=== PATIENT | male | born 1990 | race Two or more races ===

== ENCOUNTER 2023-05-07 19:19 | Emergency (ER) | payer MEDICAID ==
[~2023-05-07] VITALS: Ht 188 cm; Wt 59.2 kg
[2023-05-07 19:35] VITALS: TEMP 98.5
[2023-05-07 19:45] LABS: COVID AG,FIA SOURCE NASAL SWAB
[2023-05-07 19:47] LABS: SARS-COV2 (COVID) ANTIGEN,FIA Negative (Negative)
[2023-05-07 19:47] LABS: BASOPHILS % (AUTO) 0.2 % (0.0-2.0); EOSINOPHILS % (AUTO) 0 % (1.0-6.0); HEMATOCRIT 46.4 % (41-53); HEMOGLOBIN 15.9 g/dL (13.5-17.5); LYMPHOCYTES # (AUTO) 1.3 K/uL (1.0-4.8); MEAN CORPUSCULAR HEMOGLOBIN 30.5 pg (26.0-34.0); MEAN CORPUSCULAR HGB CONC 34.2 G/dL (31.0-37.0); MEAN CORPUSCULAR VOLUME 89 fL (80-100); MONOCYTES # (AUTO) 0.6 K/uL (0.1-1.0); MONOCYTES % (AUTO) 8.3 % (2.0-9.0); NEUTROPHILS # (AUTO) 5.5 K/uL (1.8-7.7); NEUTROPHILS % (AUTO) 74.5 % (40.0-70.0); PLATELET COUNT (AUTO) 185 K/uL (150-450); RED BLOOD CELL COUNT(AUTO) 5.21 MIL/uL (4.50-5.90); RED CELL DISTRIBUTION WIDTH 14.8 % (11.5-14.5); WHITE BLOOD COUNT (AUTO) 7.4 K/uL (4.5-11.0)
[2023-05-07 20:01] LABS: ANION GAP 12 mmol/L (8-16); CALCIUM, TOTAL 9.1 mg/dL (8.8-10.5); CARBON DIOXIDE 28 mmol/L (22-29); CHLORIDE 100 mmol/L (98-107); CREATININE 0.96 mg/dL (0.60-1.30); GLOMERULAR FILTR. RATE CALC > 60 mL/min (>60); GLUCOSE,RANDOM 146 mg/dL (70-110); POTASSIUM 3.2 mmol/L (3.5-5.1); SODIUM SERUM 140 mmol/L (136-145); UREA NITROGEN, BLOOD 6 mg/dL (7-18)
[2023-05-07 20:04] LABS: ALCOHOL, BLOOD (SERUM) < 3 mg/dL (0-10)
[2023-05-07 20:07] LABS: ALANINE AMINOTRANSFERASE 15 U/L (12-78); ALBUMIN 3.7 g/dL (3.4-5.0); ALKALINE PHOSPHATASE 62 U/L (46-116); ASPARTATE AMINOTRANSFERASE 12 U/L (15-37); BILIRUBIN,TOTAL 0.5 mg/dL (0.1-1.0); TOTAL PROTEIN, SERUM 7.6 g/dL (6.4-8.2)
[2023-05-08 03:02] VITALS: BP 117/77; PULSE 77; RESP 16
[2023-05-08] MEDS ORDERED: ChlorproMAZINE HCL 100 MG TABLET PO PRN (03:15)
[2023-05-08] MEDS ORDERED: ZOLPIDEM TARTRATE 10 MG TABLET PO PRN (03:15)
[2023-05-08] MEDS ORDERED: LORazepam 2 MG TABLET PO PRN (03:15)
[2023-05-08 04:01] LABS: APPEARANCE,URINE CLEAR (CLEAR); BILIRUBIN,URINE NEGATIVE (NEGATIVE); COLOR,URINE YELLOW (YELLOW); GLUCOSE, URINE (UA) NEGATIVE (NEGATIVE); KETONES,URINE TRACE mg/dL (NEGATIVE); LEUKOCYTE ESTERASE ,URINE NEGATIVE (NEGATIVE); NITRATE,URINE NEGATIVE (NEGATIVE); OCCULT BLOOD,URINE NEGATIVE (NEGATIVE); PH,URINE 6.5 (5.0-8.0); PH,URINE DRUG SCREEN 6.5 (5.0-8.0); PROTEIN,URINE TRACE mg/dL (NEGATIVE); SPECIFIC GRAVITIY, URINE 1.016 (1.003-1.030); UROBILINOGEN,URINE <=1.0 mg/dL (<=1.0)
[2023-05-08 04:07] LABS: ALCOHOL, URINE DRUG SCREEN NEGATIVE (NEGATIVE); AMPHET/METH SCREEN,URINE NEGATIVE (NEGATIVE); BARBITURATE SCREEN, URINE NEGATIVE (NEGATIVE); BENZODIAZEPINES SCREEN,URINE NEGATIVE (NEGATIVE); CANNABINOID SCREEN,URINE NEGATIVE (NEGATIVE); COCAINE SCREEN,URINE NEGATIVE (NEGATIVE); METHADONE SCREEN, URINE NEGATIVE (NEGATIVE); OPIATE SCREEN,URINE NEGATIVE (NEGATIVE); PHENCYCLIDINE SCREEN,URINE NEGATIVE (NEGATIVE)
[2023-05-08] MEDS: POTASSIUM CHLORIDE 20 MEQ ER TABLET PO ONE (04:07)
[2023-05-08] MEDS ORDERED: GABAPENTIN 400 MG CAPSULE PO SCH (09:00)
[2023-05-08] MEDS ORDERED: OLANZapine 10 MG TABLET PO SCH (09:00)
[2023-05-08] MEDS ORDERED: DIVALPROEX SODIUM 500 MG DR TABLET PO SCH (09:00)
== END 2023-05-08 04:51 | disposition home or self-care (01) ==
LOC: EMS 19:19 → B2S 05-08 03:22 → UNDOADMIN 05-08 03:22 → EMS 05-08 04:51
DX: F20.9 Schizophrenia, unspecified (principal); E87.6 Hypokalemia; I10 Essential (primary) hypertension; F32.A Depression, unspecified; Z20.822 Contact with and (suspected) exposure to COVID-19
CPT/HCPCS: 99283; 87426; 80053; 81003; 85025; 36415; 80307; G0480; 99285

== ENCOUNTER 2023-05-08 07:36 | Inpatient (IN) | payer MEDICAID ==
[~2023-05-08] VITALS: Ht 188 cm; Wt 62.1 kg
[2023-05-08 08:15] LABS: BASOPHILS % (AUTO) 0.4 % (0.0-2.0); EOSINOPHILS % (AUTO) 0.3 % (1.0-6.0); HEMATOCRIT 44.9 % (41-53); HEMOGLOBIN 15.5 g/dL (13.5-17.5); LYMPHOCYTES # (AUTO) 1.9 K/uL (1.0-4.8); LYMPHOCYTES % (AUTO) 28.8 % (22.0-44.0); MEAN CORPUSCULAR HEMOGLOBIN 30.6 pg (26.0-34.0); MEAN CORPUSCULAR HGB CONC 34.5 G/dL (31.0-37.0); MEAN CORPUSCULAR VOLUME 89 fL (80-100); MONOCYTES # (AUTO) 0.7 K/uL (0.1-1.0); MONOCYTES % (AUTO) 10.1 % (2.0-9.0); NEUTROPHILS % (AUTO) 60.4 % (40.0-70.0); PLATELET COUNT (AUTO) 188 K/uL (150-450); RED BLOOD CELL COUNT(AUTO) 5.06 MIL/uL (4.50-5.90); WHITE BLOOD COUNT (AUTO) 6.6 K/uL (4.5-11.0)
[2023-05-08 08:19] LABS: ANION GAP 8 mmol/L (8-16); CALCIUM, TOTAL 9.1 mg/dL (8.8-10.5); CARBON DIOXIDE 30 mmol/L (22-29); CHLORIDE 102 mmol/L (98-107); CREATININE 0.76 mg/dL (0.60-1.30); GLOMERULAR FILTR. RATE CALC > 60 mL/min (>60); GLUCOSE,RANDOM 96 mg/dL (70-110); POTASSIUM 4.3 mmol/L (3.5-5.1); SODIUM SERUM 140 mmol/L (136-145); UREA NITROGEN, BLOOD 8 mg/dL (7-18)
[2023-05-08 08:24] LABS: ALANINE AMINOTRANSFERASE 14 U/L (12-78); ALBUMIN 3.5 g/dL (3.4-5.0); ALKALINE PHOSPHATASE 57 U/L (46-116); ASPARTATE AMINOTRANSFERASE 14 U/L (15-37); BILIRUBIN,TOTAL 0.6 mg/dL (0.1-1.0); TOTAL PROTEIN, SERUM 7.1 g/dL (6.4-8.2)
[2023-05-08 08:34] LABS: ALCOHOL, BLOOD (SERUM) < 3 mg/dL (0-10)
[2023-05-08 23:45] VITALS: BP 122/79; PULSE 83; RESP 18; TEMP 98.3
[2023-05-09] MEDS ORDERED: QUEtiapine FUMARATE 100 MG TABLET PO PRN
[2023-05-09] MEDS ORDERED: LORazepam 2 MG TABLET PO PRN
[2023-05-09] MEDS ORDERED: ONDANSETRON HCL 4 MG TABLET PO PRN (05:45)
[2023-05-09] MEDS ORDERED: LOPERAMIDE HCL 2 MG CAPSULE PO PRN (05:45)
[2023-05-09] MEDS ORDERED: ACETAMINOPHEN 325 MG TABLET PO PRN (05:45)
[2023-05-09] MEDS ORDERED: BACITRACIN 28 GM OINTMENT TP PRN (05:45)
[2023-05-09] MEDS ORDERED: IBUPROFEN 600 MG TABLET PO PRN (05:45)
[2023-05-09] MEDS ORDERED: MAG HYDROX/ALUMINUM HYD/SIMETH ES 30 ML SUSPENSION UDCUP PO PRN ×2 (05:45→09:00)
[2023-05-09] MEDS ORDERED: PETROLATUM,WHITE 28 GM JELLY TP PRN (05:45)
[2023-05-09] MEDS ORDERED: MAGNESIUM HYDROXIDE SUSPENSION 30 ML UDCUP PO PRN ×2 (05:45→09:00)
[2023-05-09] MEDS ORDERED: BENZOCAINE/MENTHOL LOZENGE PO PRN (05:45)
[2023-05-09] MEDS ORDERED: ALBUTEROL SULFATE HFA 90 MCG/PUFF 8 GM INHALER IH PRN (05:45)
[2023-05-09] MEDS ORDERED: DOCUSATE SODIUM 100 MG CAPSULE PO PRN (05:45)
[2023-05-09] MEDS ORDERED: OMEPRAZOLE 20 MG CAPSULE PO PRN (05:45)
[2023-05-09] MEDS ORDERED: CloNIDine HCL 0.1 MG TABLET PO PRN (05:45)
[2023-05-09 08:27] VITALS: BP 121/78; PULSE 71; RESP 17; TEMP 97.8
[2023-05-09] MEDS: FOLIC ACID 1 MG TABLET PO SCH (09:00)
[2023-05-09] MEDS ORDERED: HydrOXYzine PAMOATE 50 MG CAPSULE PO PRN (09:00)
[2023-05-09] MEDS ORDERED: PROMETHAZINE HCL 25 MG TABLET PO PRN (09:00)
[2023-05-09] MEDS: THIAMINE 100 MG TABLET PO SCH (09:00)
[2023-05-09] MEDS: OMEGA-3/DHA/EPA/FISH OIL 1,000 MG CAPSULE PO SCH (09:00)
[2023-05-09] MEDS: TUBERCULIN, PURIFIED PROTEIN DERIVATIVE 5 TU/0.1 ML SYRINGE ID ONE (09:00)
[2023-05-09] MEDS: MULTIVITAMINS WITH MINERALS, THERAPEUTIC TABLET PO SCH (09:00)
[2023-05-09] MEDS ORDERED: GuaiFENesin/D-METHORPHAN [SUGAR-FREE] 200-20MG/10 ML SYRUP UDCUP PO PRN (09:00)
[2023-05-09] MEDS ORDERED: OLANZapine 5 MG RAPDIS TABLET PO PRN (09:00)
[2023-05-09] MEDS: OLANZapine 10 MG RAPDIS TABLET PO SCH (20:51)
[2023-05-09] MEDS: MELATONIN 5 MG TABLET PO SCH (20:51)
[2023-05-09] MEDS: MIRTAZAPINE 15 MG TABLET PO SCH (20:51)
[2023-05-09 21:02] VITALS: BP 134/84; PULSE 99; RESP 18
[2023-05-10 09:44] VITALS: BP 127/69; PULSE 64; RESP 18; TEMP 97.5
[2023-05-10] MEDS: ZOLPIDEM TARTRATE 10 MG TABLET PO PRN (21:45)
[2023-05-10 22:21] VITALS: BP 127/69; PULSE 75; RESP 18; TEMP 97.4
[2023-05-11 09:37] LABS: HEMOGLOBIN A1C 5.7 % (3.8-5.6)
[2023-05-11 09:58] LABS: CHOL/HDL RATIO 2.1 (4.2-7.3); FREE T4 (FREE THYROXINE) 0.99 ng/dL (0.76-1.46); THYROID STIMULATING HORMONE 0.95 uIU/mL (0.36-3.74)
[2023-05-11 10:43] VITALS: BP 128/97; PULSE 105; RESP 18; TEMP 97
[2023-05-11 20:56] VITALS: BP 130/75; PULSE 75; RESP 18; TEMP 97.5
[2023-05-12 10:04] VITALS: BP 166/99; PULSE 79; RESP 18; TEMP 97.5
[2023-05-12 20:25] VITALS: BP 133/96; PULSE 69; RESP 17; TEMP 97.3
[2023-05-13 09:45] VITALS: BP 125/79; PULSE 91; RESP 18; TEMP 97.1
[2023-05-13 20:08] VITALS: BP 133/73; PULSE 100; RESP 18; TEMP 97.4
[2023-05-14 08:54] VITALS: BP 116/86; PULSE 61; RESP 18; TEMP 98.1
[2023-05-14 20:29] VITALS: BP 79/60; PULSE 72; RESP 18; TEMP 98.1
[2023-05-15 09:08] VITALS: BP 129/89; PULSE 97; RESP 18; TEMP 98.2
[2023-05-15] MEDS ORDERED: OMEG-135 PO (10:21)
[2023-05-15] MEDS ORDERED: MIRT-89 PO (10:21)
[2023-05-15] MEDS ORDERED: OLAN10TA26 PO (10:21)
[2023-05-15] MEDS ORDERED: MELA5TAB40 PO (10:21)
[2023-05-15 20:19] VITALS: BP 112/78; PULSE 76; RESP 18; TEMP 98.1
[2023-05-15] MEDS: MIRTAZAPINE 15 MG TABLET PO SCH (20:58)
[2023-05-16 08:34] VITALS: BP 111/75; PULSE 65; RESP 18; TEMP 98.1
== END 2023-05-16 14:45 | DRG 750 ==
LOC: EMS 07:36 → 3EC 23:20
PROVIDERS: ADMIT Psychiatry & Neurology Psychiatry; ATTEND Psychiatry & Neurology Psychiatry
PROC: GZHZZZZ Group Psychotherapy (ICD-10-PCS; principal; 2023-05-09)
PROC: GZ51ZZZ Individual Psychotherapy, Behavioral (ICD-10-PCS; 2023-05-09)
DX: F25.9 Schizoaffective disorder, unspecified (principal); Q87.40 Marfan syndrome, unspecified; E46 Unspecified protein-calorie malnutrition; R45.851 Suicidal ideations; Z91.148 Patient's other noncompliance with medication regimen for other reason; F32.A Depression, unspecified; G47.00 Insomnia, unspecified; I10 Essential (primary) hypertension; F94.0 Selective mutism; Z91.199 Patient's noncompliance with other medical treatment and regimen due to unspecified reason; Z74.01 Bed confinement status; Z68.1 Body mass index [BMI] 19.9 or less, adult
CPT/HCPCS: 80053; 80061; 83036; 84439; 84443; 85025; 86592; 87081; 92610; 99285; G0480; Q9967

== ENCOUNTER 2023-05-22 21:22 | Inpatient (IN) | payer MEDICAID ==
[~2023-05-22] VITALS: Ht 188 cm; Wt 70.8 kg
[~2023-05-22 21:22] MED LIST: MELA5TAB40 PO; MIRT-89 PO; OLAN10TA26 PO; OMEG-135 PO
[2023-05-22 22:18] LABS: BASOPHILS % (AUTO) 0.4 % (0.0-2.0); EOSINOPHILS % (AUTO) 0.5 % (1.0-6.0); HEMATOCRIT 42.1 % (41-53); HEMOGLOBIN 14.7 g/dL (13.5-17.5); LYMPHOCYTES # (AUTO) 1.9 K/uL (1.0-4.8); MEAN CORPUSCULAR HEMOGLOBIN 30.8 pg (26.0-34.0); MEAN CORPUSCULAR HGB CONC 34.9 G/dL (31.0-37.0); MEAN CORPUSCULAR VOLUME 88 fL (80-100); MONOCYTES # (AUTO) 0.6 K/uL (0.1-1.0); MONOCYTES % (AUTO) 8.4 % (2.0-9.0); NEUTROPHILS # (AUTO) 4.6 K/uL (1.8-7.7); NEUTROPHILS % (AUTO) 64.7 % (40.0-70.0); PLATELET COUNT (AUTO) 211 K/uL (150-450); RED BLOOD CELL COUNT(AUTO) 4.77 MIL/uL (4.50-5.90); RED CELL DISTRIBUTION WIDTH 14.8 % (11.5-14.5); WHITE BLOOD COUNT (AUTO) 7.1 K/uL (4.5-11.0)
[2023-05-22 22:25] LABS: ANION GAP 10 mmol/L (8-16); CALCIUM, TOTAL 9.5 mg/dL (8.8-10.5); CARBON DIOXIDE 27 mmol/L (22-29); CHLORIDE 101 mmol/L (98-107); CREATININE 0.69 mg/dL (0.60-1.30); GLOMERULAR FILTR. RATE CALC > 60 mL/min (>60); GLUCOSE,RANDOM 99 mg/dL (70-110); POTASSIUM 3.5 mmol/L (3.5-5.1); SODIUM SERUM 138 mmol/L (136-145); UREA NITROGEN, BLOOD 7 mg/dL (7-18)
[2023-05-22 22:37] LABS: ALANINE AMINOTRANSFERASE 24 U/L (12-78); ALBUMIN 3.3 g/dL (3.4-5.0); ALKALINE PHOSPHATASE 67 U/L (46-116); ASPARTATE AMINOTRANSFERASE 20 U/L (15-37); BILIRUBIN,TOTAL 0.7 mg/dL (0.1-1.0); TOTAL PROTEIN, SERUM 7.4 g/dL (6.4-8.2)
[2023-05-22 22:46] LABS: ALCOHOL, BLOOD (SERUM) < 3 mg/dL (0-10)
[2023-05-22] MEDS ORDERED: ZOLP-280 PO (23:20)
[2023-05-22] MEDS ORDERED: GABA-1201 PO (23:20)
[2023-05-22] MEDS ORDERED: TRIH5TAB4 PO (23:20)
[2023-05-22] MEDS ORDERED: MIRT-89 PO (23:20)
[2023-05-22 23:27] LABS: COVID AG,FIA SOURCE NASAL SWAB
[2023-05-22] MEDS ORDERED: HALOPERIDOL 5 MG TABLET PO PRN (23:30)
[2023-05-22] MEDS ORDERED: ZOLPIDEM TARTRATE 10 MG TABLET PO PRN (23:30)
[2023-05-22] MEDS ORDERED: LORazepam 2 MG TABLET PO PRN (23:30)
[2023-05-22 23:36] LABS: PH,URINE DRUG SCREEN 6.5 (5.0-8.0)
[2023-05-22 23:46] LABS: SARS-COV2 (COVID) ANTIGEN,FIA Negative (Negative)
[2023-05-22 23:48] LABS: ALCOHOL, URINE DRUG SCREEN NEGATIVE (NEGATIVE); AMPHET/METH SCREEN,URINE NEGATIVE (NEGATIVE); BARBITURATE SCREEN, URINE NEGATIVE (NEGATIVE); BENZODIAZEPINES SCREEN,URINE NEGATIVE (NEGATIVE); CANNABINOID SCREEN,URINE NEGATIVE (NEGATIVE); COCAINE SCREEN,URINE NEGATIVE (NEGATIVE); METHADONE SCREEN, URINE NEGATIVE (NEGATIVE); OPIATE SCREEN,URINE NEGATIVE (NEGATIVE); PHENCYCLIDINE SCREEN,URINE NEGATIVE (NEGATIVE)
[2023-05-22] MEDS: OLANZapine 10 MG TABLET PO ONE (23:59)
[2023-05-23] MEDS ORDERED: ChlorproMAZINE HCL 100 MG TABLET PO PRN (00:45)
[2023-05-23 02:56] VITALS: BP 139/78; PULSE 80; RESP 18; TEMP 98.1; O2SAT 96
[2023-05-23] MEDS ORDERED: PNEUMOCOCCAL VACCINE POLYVALENT 0.5 ML SYRINGE [PPSV23] IM. ONE (03:15)
[2023-05-23] MEDS ORDERED: PETROLATUM,WHITE 28 GM JELLY TP PRN (07:15)
[2023-05-23] MEDS ORDERED: MAGNESIUM HYDROXIDE SUSPENSION 30 ML UDCUP PO PRN (07:15)
[2023-05-23] MEDS ORDERED: CloNIDine HCL 0.1 MG TABLET PO PRN (07:15)
[2023-05-23] MEDS ORDERED: BACITRACIN 28 GM OINTMENT TP PRN (07:15)
[2023-05-23] MEDS ORDERED: ALBUTEROL SULFATE HFA 90 MCG/PUFF 8 GM INHALER IH PRN (07:15)
[2023-05-23] MEDS ORDERED: IBUPROFEN 600 MG TABLET PO PRN (07:15)
[2023-05-23] MEDS ORDERED: BENZOCAINE/MENTHOL LOZENGE PO PRN (07:15)
[2023-05-23] MEDS ORDERED: MAG HYDROX/ALUMINUM HYD/SIMETH ES 30 ML SUSPENSION UDCUP PO PRN (07:15)
[2023-05-23] MEDS ORDERED: OMEPRAZOLE 20 MG CAPSULE PO PRN (07:15)
[2023-05-23] MEDS ORDERED: ACETAMINOPHEN 325 MG TABLET PO PRN (07:15)
[2023-05-23] MEDS ORDERED: DOCUSATE SODIUM 100 MG CAPSULE PO PRN (07:15)
[2023-05-23] MEDS ORDERED: LOPERAMIDE HCL 2 MG CAPSULE PO PRN (07:15)
[2023-05-23] MEDS ORDERED: ONDANSETRON HCL 4 MG TABLET PO PRN (07:15)
[2023-05-23] MEDS: OLANZapine 10 MG RAPDIS TABLET PO SCH (08:32)
[2023-05-23] MEDS: DIVALPROEX SODIUM 500 MG ER TABLET PO SCH (08:32)
[2023-05-23] MEDS: GABAPENTIN 400 MG CAPSULE PO SCH (08:32)
[2023-05-23] MEDS: ChlorproMAZINE HCL 100 MG TABLET PO SCH (08:32)
[2023-05-23 09:51] VITALS: BP 132/79; PULSE 72; RESP 17; TEMP 98.2; O2SAT 98
[2023-05-23] MEDS: MELATONIN 5 MG TABLET PO SCH (20:13)
[2023-05-23 20:36] VITALS: RESP 16; TEMP 97.1
[2023-05-24 15:56] VITALS: BP 117/77; PULSE 106; RESP 18; TEMP 98.4; O2SAT 98
[2023-05-24 20:35] VITALS: BP 117/77; PULSE 96; RESP 18; TEMP 98.3; O2SAT 97
[2023-05-25 08:10] VITALS: BP 117/75; PULSE 86; RESP 17; TEMP 97.5; O2SAT 98
[2023-05-25] MEDS: ChlorproMAZINE HCL 100 MG TABLET PO SCH (08:52)
[2023-05-25 13:57] VITALS: BP 117/75; PULSE 86; RESP 17; TEMP 97.5; O2SAT 98
[2023-05-25 21:17] VITALS: BP 115/69; PULSE 87; RESP 16; TEMP 97.3; O2SAT 98
[2023-05-26 08:00] VITALS: BP 113/67; PULSE 90; RESP 16; TEMP 97.7; O2SAT 98
[2023-05-26 20:13] VITALS: BP 122/74; PULSE 76; RESP 18; TEMP 98.1
[2023-05-27 10:23] VITALS: BP 118/70; PULSE 80; RESP 18; TEMP 98; O2SAT 97
[2023-05-27] MEDS: GABAPENTIN 300 MG CAPSULE PO SCH (16:52)
[2023-05-27 20:23] VITALS: BP 138/64; PULSE 97; RESP 18; TEMP 97.9; O2SAT 99
[2023-05-27] MEDS: TraZODone HCL 100 MG TABLET PO SCH (20:39)
[2023-05-27] MEDS: OLANZapine 10 MG TABLET PO SCH (20:40)
[2023-05-28 08:29] VITALS: BP 100/62; PULSE 70; RESP 17; TEMP 98.6; O2SAT 100
[2023-05-28 20:29] VITALS: BP 107/63; PULSE 91; RESP 18; TEMP 97.7; O2SAT 91
[2023-05-28] MEDS: GABAPENTIN 300 MG CAPSULE PO SCH (21:00)
[2023-05-29 08:44] VITALS: BP 105/65; PULSE 76; RESP 17; TEMP 97.8; O2SAT 98
[2023-05-29 20:18] VITALS: BP 103/71; PULSE 86; RESP 16; TEMP 97.7; O2SAT 100
[2023-05-29] MEDS ORDERED: TraZODone HCL 100 MG TABLET PO PRN (21:00)
[2023-05-30 08:25] VITALS: BP 106/65; PULSE 83; RESP 17; TEMP 97.7; O2SAT 98
[2023-05-30 20:44] VITALS: BP 131/81; PULSE 94; TEMP 97.8; O2SAT 99
[2023-05-31 08:33] VITALS: BP 115/75; PULSE 115; RESP 17; TEMP 97.9; O2SAT 97
[2023-05-31] MEDS: ChlorproMAZINE HCL 50 MG TABLET PO SCH (08:35)
[2023-05-31] MEDS ORDERED: CHLO50TA61 PO (11:57)
[2023-05-31] MEDS ORDERED: DIVA500T69 PO (11:57)
[2023-05-31] MEDS ORDERED: GABA-1181 PO (11:57)
[2023-05-31] MEDS ORDERED: NALT50TA33 PO (11:57)
[2023-05-31] MEDS ORDERED: OLAN10TA74 PO (11:57)
[2023-05-31 20:54] VITALS: BP 103/72; PULSE 103; TEMP 97.4; O2SAT 98
[2023-06-01 08:15] VITALS: BP 111/69; PULSE 78; RESP 17; TEMP 97.7; O2SAT 97
== END 2023-06-01 16:10 | DRG 750 ==
LOC: EMS 21:23 → B3A 23:50
PROVIDERS: ADMIT Psychiatry & Neurology Psychiatry; ATTEND Psychiatry & Neurology Psychiatry
PROC: GZHZZZZ Group Psychotherapy (ICD-10-PCS; principal; 2023-05-23)
PROC: GZ51ZZZ Individual Psychotherapy, Behavioral (ICD-10-PCS; 2023-05-23)
PROC: GZ56ZZZ Individual Psychotherapy, Supportive (ICD-10-PCS; 2023-05-24)
DX: F20.0 Paranoid schizophrenia (principal); E46 Unspecified protein-calorie malnutrition; Q87.40 Marfan syndrome, unspecified; I10 Essential (primary) hypertension; F32.A Depression, unspecified; Z20.822 Contact with and (suspected) exposure to COVID-19; G47.00 Insomnia, unspecified; F41.9 Anxiety disorder, unspecified; Z68.20 Body mass index [BMI] 20.0-20.9, adult; Z79.899 Other long term (current) drug therapy
CPT/HCPCS: 80053; 80164; 80307; 85025; 87081; 99285; G0480; Q9967

== ENCOUNTER 2024-03-31 15:18 | Inpatient (IN) | payer MEDICAID, OTHER ==
[~2024-03-31] VITALS: Ht 188 cm; Wt 81.0 kg
[~2024-03-31 15:18] MED LIST changes: +CHLO50TA61 PO; +DIVA500T69 PO; +GABA-1181 PO; -MIRT-89 PO; +NALT50TA33 PO; -OLAN10TA26 PO; +OLAN10TA74 PO; -OMEG-135 PO
[2024-03-31 16:15] LABS: COVID AG,FIA SOURCE NASAL SWAB
[2024-03-31 16:37] LABS: SARS-COV2 (COVID) ANTIGEN,FIA Negative (Negative)
[2024-03-31] MEDS: ChlorproMAZINE HCL 25 MG TABLET PO ONE ×2 (18:13→21:10)
[2024-03-31] MEDS: OLANZapine 10 MG TABLET PO ONE (20:39)
[2024-03-31] MEDS: GABAPENTIN 300 MG CAPSULE PO ONE (20:39)
[2024-03-31] MEDS ORDERED: ZOLPIDEM TARTRATE 10 MG TABLET PO PRN (21:45)
[2024-03-31] MEDS ORDERED: LORazepam 2 MG TABLET PO PRN (21:45)
[2024-03-31] MEDS ORDERED: HALOPERIDOL 5 MG TABLET PO PRN (21:45)
[2024-04-01 00:29] VITALS: RESP 18; TEMP 98.2
[2024-04-01] MEDS ORDERED: OMEPRAZOLE 20 MG CAPSULE PO PRN (09:30)
[2024-04-01] MEDS ORDERED: ALBUTEROL SULFATE HFA 90 MCG/PUFF 8 GM INHALER IH PRN (09:30)
[2024-04-01] MEDS ORDERED: ONDANSETRON 4 MG TABLET PO PRN (09:30)
[2024-04-01] MEDS ORDERED: ACETAMINOPHEN 325 MG TABLET PO PRN (09:30)
[2024-04-01] MEDS ORDERED: IBUPROFEN 600 MG TABLET PO PRN (09:30)
[2024-04-01] MEDS ORDERED: BENZOCAINE/MENTHOL LOZENGE PO PRN (09:30)
[2024-04-01] MEDS ORDERED: MAG HYDROX/ALUMINUM HYD/SIMETH ES 30 ML SUSPENSION UDCUP PO PRN (09:30)
[2024-04-01] MEDS ORDERED: MAGNESIUM HYDROXIDE SUSPENSION 30 ML UDCUP PO PRN (09:30)
[2024-04-01] MEDS ORDERED: CloNIDine HCL 0.1 MG TABLET PO PRN (09:30)
[2024-04-01] MEDS ORDERED: BACITRACIN 28 GM OINTMENT TP PRN (09:30)
[2024-04-01] MEDS ORDERED: PETROLATUM,WHITE 28 GM JELLY TP PRN (09:30)
[2024-04-01] MEDS ORDERED: LOPERAMIDE HCL 2 MG CAPSULE PO PRN ×2 (09:30→22:45)
[2024-04-01 10:06] VITALS: RESP 19; TEMP 97.2
[2024-04-01] MEDS: OLANZapine 5 MG RAPDIS TABLET PO SCH (12:41)
[2024-04-01] MEDS: ChlorproMAZINE HCL 25 MG TABLET PO SCH (12:41)
[2024-04-01] MEDS: GABAPENTIN 300 MG CAPSULE PO SCH (12:41)
[2024-04-01] MEDS: DIVALPROEX SODIUM 500 MG ER TABLET PO SCH (17:47)
[2024-04-01 22:31] VITALS: BP 137/70; PULSE 60; RESP 18; TEMP 98; O2SAT 97
[2024-04-01] MEDS ORDERED: HydrOXYzine PAMOATE 50 MG CAPSULE PO PRN (22:45)
[2024-04-01] MEDS ORDERED: GuaiFENesin/D-METHORPHAN [SUGAR-FREE] 200-20MG/10 ML SYRUP UDCUP PO PRN (22:45)
[2024-04-01 23:00] VITALS: BP 137/70; PULSE 60; RESP 18; TEMP 98; O2SAT 97
[2024-04-01] MEDS: CYANOCOBALAMIN 1,000 MCG/ML VIAL IM ONE (23:43)
[2024-04-02] MEDS: MULTIVITAMINS WITH MINERALS, THERAPEUTIC TABLET PO SCH (09:07)
[2024-04-02] MEDS: FOLIC ACID 1 MG TABLET PO SCH (09:07)
[2024-04-02] MEDS: THIAMINE 100 MG TABLET PO SCH (09:07)
[2024-04-02 11:11] LABS: HEMOGLOBIN A1C 5.3 % (3.8-5.6)
[2024-04-02 11:14] LABS: BASOPHILS % (AUTO) 0.7 % (0.0-2.0); EOSINOPHILS % (AUTO) 0.5 % (1.0-6.0); HEMATOCRIT 43.5 % (41-53); HEMOGLOBIN 14.7 g/dL (13.5-17.5); LYMPHOCYTES # (AUTO) 1.5 K/uL (1.0-4.8); LYMPHOCYTES % (AUTO) 20.3 % (22.0-44.0); MEAN CORPUSCULAR HEMOGLOBIN 31.9 pg (26.0-34.0); MEAN CORPUSCULAR HGB CONC 33.8 G/dL (31.0-37.0); MEAN CORPUSCULAR VOLUME 95 fL (80-100); MONOCYTES % (AUTO) 13.4 % (2.0-9.0); NEUTROPHILS # (AUTO) 4.7 K/uL (1.8-7.7); NEUTROPHILS % (AUTO) 65.1 % (40.0-70.0); PLATELET COUNT (AUTO) 356 K/uL (150-450); RED BLOOD CELL COUNT(AUTO) 4.61 MIL/uL (4.50-5.90); RED CELL DISTRIBUTION WIDTH 13.8 % (11.5-14.5); WHITE BLOOD COUNT (AUTO) 7.3 K/uL (4.5-11.0)
[2024-04-02 11:43] LABS: ALANINE AMINOTRANSFERASE 22 U/L (12-78); ALBUMIN 2.8 g/dL (3.4-5.0); ALKALINE PHOSPHATASE 66 U/L (46-116); ANION GAP 9 mmol/L (8-16); ASPARTATE AMINOTRANSFERASE 18 U/L (15-37); BILIRUBIN,TOTAL 0.6 mg/dL (0.1-1.0); CALCIUM, TOTAL 9.2 mg/dL (8.8-10.5); CARBON DIOXIDE 25 mmol/L (22-29); CHLORIDE 107 mmol/L (98-107); CHOL/HDL RATIO 3.2 (4.2-7.3); CHOLESTEROL 171 mg/dL (131-200); CREATININE 0.97 mg/dL (0.60-1.30); FREE T4 (FREE THYROXINE) 1.25 ng/dL (0.76-1.46); GLOMERULAR FILTR. RATE CALC > 60 mL/min (>60); GLUCOSE,RANDOM 83 mg/dL (70-110); HDL CHOLESTEROL 53 mg/dL (40-60); LDL CHOL (CALC.) 98 mg/dL (0-130); POTASSIUM 4.2 mmol/L (3.5-5.1); SODIUM SERUM 141 mmol/L (136-145); THYROID STIMULATING HORMONE 1.43 uIU/mL (0.36-3.74); TOTAL PROTEIN, SERUM 6.8 g/dL (6.4-8.2); TRIGLYCERIDES 102 mg/dL (15-150); UREA NITROGEN, BLOOD 8 mg/dL (7-18); VALPROIC ACID 38 mcg/mL (50-100)
[2024-04-02 16:33] VITALS: TEMP 98
[2024-04-02 22:08] VITALS: PULSE 18; TEMP 97.2
[2024-04-03] MEDS: ChlorproMAZINE HCL 100 MG TABLET PO SCH (21:08)
[2024-04-03 23:01] VITALS: BP 110/65; PULSE 18; RESP 18; TEMP 98; O2SAT 96
[2024-04-04] MEDS ORDERED: DIVA-153 PO (09:07)
[2024-04-04] MEDS ORDERED: MELA5TAB40 PO (09:07)
[2024-04-04] MEDS ORDERED: CHLO100T42 PO (09:07)
[2024-04-04] MEDS ORDERED: OLAN5TAB94 PO (09:07)
[2024-04-04] MEDS ORDERED: GABA-1201 PO (09:07)
[2024-04-04] MEDS: DOCUSATE SODIUM 100 MG CAPSULE PO PRN (09:10)
[2024-04-04] MEDS: GABAPENTIN 400 MG CAPSULE PO SCH (09:10)
[2024-04-04 17:56] VITALS: RESP 18
[2024-04-04 23:05] VITALS: BP 104/62; PULSE 82; RESP 18; TEMP 97.1; O2SAT 99
[2024-04-05 09:30] VITALS: BP 112/62; PULSE 104; RESP 18; TEMP 97.4; O2SAT 99
== END 2024-04-05 18:31 | DRG 750 ==
LOC: EMS 15:18 → 3EI 04-01 00:22
PROVIDERS: ADMIT Psychiatry & Neurology Psychiatry; ATTEND Psychiatry & Neurology Psychiatry
PROC: GZHZZZZ Group Psychotherapy (ICD-10-PCS; principal; 2024-04-02)
PROC: GZ51ZZZ Individual Psychotherapy, Behavioral (ICD-10-PCS; 2024-04-02)
DX: F25.9 Schizoaffective disorder, unspecified (principal); Q87.40 Marfan syndrome, unspecified; F41.9 Anxiety disorder, unspecified; G47.00 Insomnia, unspecified; Z20.822 Contact with and (suspected) exposure to COVID-19; I10 Essential (primary) hypertension; K59.00 Constipation, unspecified
CPT/HCPCS: 80053; 80061; 80164; 83036; 84439; 84443; 85025; 86592; 99285

== ENCOUNTER 2024-06-10 19:02 | Inpatient (IN) | payer MEDICAID, OTHER ==
[~2024-06-10] VITALS: Ht 185.4 cm; Wt 78.2 kg
[~2024-06-10 19:02] MED LIST changes: +CHLO100T42 PO; -CHLO50TA61 PO; +DIVA-153 PO; -DIVA500T69 PO; -GABA-1181 PO; +GABA-1201 PO; -NALT50TA33 PO; -OLAN10TA74 PO; +OLAN5TAB94 PO
[2024-06-10 20:12] LABS: BASOPHILS % (AUTO) 0.1 % (0.0-2.0); EOSINOPHILS % (AUTO) 0 % (1.0-6.0); HEMATOCRIT 38.3 % (41-53); HEMOGLOBIN 12.7 g/dL (13.5-17.5); LYMPHOCYTES # (AUTO) 1.2 K/uL (1.0-4.8); LYMPHOCYTES % (AUTO) 30.4 % (22.0-44.0); MEAN CORPUSCULAR HEMOGLOBIN 31.3 pg (26.0-34.0); MEAN CORPUSCULAR HGB CONC 33.1 G/dL (31.0-37.0); MEAN CORPUSCULAR VOLUME 95 fL (80-100); MONOCYTES # (AUTO) 0.7 K/uL (0.1-1.0); MONOCYTES % (AUTO) 16.5 % (2.0-9.0); NEUTROPHILS # (AUTO) 2.2 K/uL (1.8-7.7); PLATELET COUNT (AUTO) 165 K/uL (150-450); RED BLOOD CELL COUNT(AUTO) 4.05 MIL/uL (4.50-5.90); RED CELL DISTRIBUTION WIDTH 17.3 % (11.5-14.5); WHITE BLOOD COUNT (AUTO) 4.1 K/uL (4.5-11.0)
[2024-06-10 20:16] LABS: ANION GAP 3 mmol/L (8-16); CARBON DIOXIDE 32 mmol/L (22-29); CHLORIDE 105 mmol/L (98-107); CREATININE 0.99 mg/dL (0.60-1.30); GLOMERULAR FILTR. RATE CALC > 60 mL/min (>60); GLUCOSE,RANDOM 91 mg/dL (70-110); POTASSIUM 4.6 mmol/L (3.5-5.1); SODIUM SERUM 140 mmol/L (136-145); UREA NITROGEN, BLOOD 8 mg/dL (7-18)
[2024-06-10 20:23] LABS: ALBUMIN 2.5 g/dL (3.4-5.0); BILIRUBIN,DIRECT 0.2 mg/dL (0.00-0.20); BILIRUBIN,TOTAL 0.5 mg/dL (0.1-1.0); TOTAL PROTEIN, SERUM 6.5 g/dL (6.4-8.2)
[2024-06-10 22:17] LABS: APPEARANCE,URINE CLEAR (CLEAR); BILIRUBIN,URINE NEGATIVE (NEGATIVE); COLOR,URINE LIGHT YELLOW (YELLOW); GLUCOSE, URINE (UA) NEGATIVE (NEGATIVE); KETONES,URINE NEGATIVE (NEGATIVE); LEUKOCYTE ESTERASE ,URINE NEGATIVE (NEGATIVE); NITRATE,URINE NEGATIVE (NEGATIVE); OCCULT BLOOD,URINE NEGATIVE (NEGATIVE); PH,URINE 7.5 (5.0-8.0); PH,URINE DRUG SCREEN 7.5 (5.0-8.0); PROTEIN,URINE NEGATIVE (NEGATIVE); SPECIFIC GRAVITIY, URINE 1.013 (1.003-1.030)
[2024-06-10 22:24] LABS: ALCOHOL, URINE DRUG SCREEN NEGATIVE (NEGATIVE); AMPHET/METH SCREEN,URINE NEGATIVE (NEGATIVE); BARBITURATE SCREEN, URINE NEGATIVE (NEGATIVE); BENZODIAZEPINES SCREEN,URINE NEGATIVE (NEGATIVE); CANNABINOID SCREEN,URINE NEGATIVE (NEGATIVE); COCAINE SCREEN,URINE NEGATIVE (NEGATIVE); METHADONE SCREEN, URINE NEGATIVE (NEGATIVE); OPIATE SCREEN,URINE NEGATIVE (NEGATIVE); PHENCYCLIDINE SCREEN,URINE NEGATIVE (NEGATIVE)
[2024-06-11] MEDS ORDERED: 0.9% SODIUM CHLORIDE 5 ML NEB SOLUTION NEB ONE (00:26)
[2024-06-11] MEDS: ALBUTEROL SULFATE 2.5 MG/0.5 ML NEB SOLUTION NEB ONE (00:27)
[2024-06-11] MEDS: IPRATROPIUM BROMIDE 0.5 MG/2.5 ML NEB SOLUTION NEB ONE (00:27)
[2024-06-11] MEDS: AZITHROMYCIN 500 MG/NS 250 ML IV ONE (01:30)
[2024-06-11] MEDS: CefTRIAXone 1 GM/DEXTROSE 50 ML IV ONE (01:31)
[2024-06-11] MEDS: SODIUM CHLORIDE 0.9% 1,000 ML IV ONE ×2 (01:32→02:12)
[2024-06-11 02:21] LABS: COVID AG,FIA SOURCE NASAL SWAB
[2024-06-11 02:57] LABS: INFLUENZA TYPE A NEGATIVE FOR TYPE A (NEGATIVE); INFLUENZA TYPE B NEGATIVE FOR TYPE B (NEGATIVE)
[2024-06-11 02:58] LABS: SARS-COV2 (COVID) ANTIGEN,FIA Negative (Negative)
[2024-06-11 03:18] LABS: VALPROIC ACID 120 mcg/mL (50-100)
[2024-06-11] MEDS ORDERED: MIRT-89 PO (03:49)
[2024-06-11] MEDS ORDERED: OLAN5TAB52 PO (03:49)
[2024-06-11] MEDS ORDERED: MEGE400O44 PO (03:49)
[2024-06-11 05:20] VITALS: BP 124/86; PULSE 60; RESP 18; TEMP 97.8; O2SAT 97
[2024-06-11 15:54] VITALS: BP 121/75; PULSE 90; RESP 18; TEMP 97.7; O2SAT 97
[2024-06-11] MEDS ORDERED: OLANZapine 5 MG RAPDIS TABLET PO SCH (16:00)
[2024-06-11] MEDS: ChlorproMAZINE HCL 100 MG TABLET PO SCH (16:36)
[2024-06-11] MEDS: OLANZapine 5 MG TABLET PO SCH (16:36)
[2024-06-11] MEDS: GABAPENTIN 400 MG CAPSULE PO SCH (16:36)
[2024-06-11 19:31] VITALS: BP 114/71; PULSE 94; RESP 18; TEMP 97.3; O2SAT 95
[2024-06-11] MEDS: MEGESTROL ACETATE 400 MG/10 ML SUSPENSION UDCUP PO SCH (20:41)
[2024-06-11] MEDS: DIVALPROEX SODIUM 500 MG ER TABLET PO SCH (20:41)
[2024-06-11] MEDS: MELATONIN 5 MG TABLET PO SCH (20:42)
[2024-06-11] MEDS: MIRTAZAPINE 15 MG TABLET PO SCH (20:42)
[2024-06-11] MEDS ORDERED: ACETAMINOPHEN 325 MG TABLET PO PRN (20:45)
[2024-06-11] MEDS ORDERED: IPRATROPIUM BROMIDE 0.5 MG/2.5 ML NEB SOLUTION NEB PRN (20:45)
[2024-06-11] MEDS ORDERED: MORPHINE SULFATE 2 MG/ML SYRINGE IVP PRN (20:45)
[2024-06-11] MEDS ORDERED: ZOLPIDEM TARTRATE 5 MG TABLET PO PRN (20:45)
[2024-06-11] MEDS ORDERED: MAGNESIUM HYDROXIDE SUSPENSION 30 ML UDCUP PO PRN (20:45)
[2024-06-11] MEDS ORDERED: ONDANSETRON HCL 4 MG/2 ML VIAL IVP PRN (20:45)
[2024-06-11] MEDS ORDERED: BISACODYL 10 MG RECTAL RECTAL SUPPOSITORY PR PRN (20:45)
[2024-06-11] MEDS ORDERED: OxyCODONE HCL/ACETAMINOPHEN 5-325 MG TABLET PO PRN (20:45)
[2024-06-11] MEDS ORDERED: ALBUTEROL SULFATE 2.5 MG/0.5 ML NEB SOLUTION NEB PRN (20:45)
[2024-06-11] MEDS: HEPARIN SODIUM,PORCINE 5,000 UNITS/ML VIAL SQ SCH (23:39)
[2024-06-12 04:20] VITALS: BP 108/75; PULSE 85; RESP 18; TEMP 98.2; O2SAT 96
[2024-06-12] MEDS: PANTOPRAZOLE SODIUM 40 MG/VIAL IVP SCH (09:07)
[2024-06-12] MEDS: DOCUSATE SODIUM 100 MG/10 ML LIQUID UDCUP PO SCH (09:09)
[2024-06-12] MEDS ORDERED: DOCU-385 PO (12:57)
[2024-06-12] MEDS ORDERED: ACET-2247 PO (12:58)
[2024-06-12] MEDS ORDERED: ALBU2.5V39 NEB (12:59)
[2024-06-12] MEDS ORDERED: BISA10SU11 PR (13:00)
[2024-06-12] MEDS ORDERED: IPRA0.2S49 NEB (13:00)
[2024-06-12] MEDS ORDERED: MAGN-169 PO (13:01)
[2024-06-12 15:57] VITALS: BP 104/68; PULSE 78; RESP 20; TEMP 98.2; O2SAT 97
== END 2024-06-12 20:00 | DRG 815 ==
LOC: EMS 19:02 → EDH 06-11 00:12 → 6S 06-11 04:57
PROVIDERS: ADMIT Hospitalist; ATTEND Hospitalist
DX: T73.0XXA Starvation, initial encounter (principal); G93.40 Encephalopathy, unspecified; E43 Unspecified severe protein-calorie malnutrition; Q87.40 Marfan syndrome, unspecified; F25.9 Schizoaffective disorder, unspecified; F32.A Depression, unspecified; I10 Essential (primary) hypertension; Z20.822 Contact with and (suspected) exposure to COVID-19; Z68.22 Body mass index [BMI] 22.0-22.9, adult; F79 Unspecified intellectual disabilities; X58.XXXA Exposure to other specified factors, initial encounter
CPT/HCPCS: 71045; 80048; 80076; 80164; 80307; 81003; 85025; 87040; 87081; 87804; 99285; J0456; J0696; J1644; J2470; J7030; 36415-L1; 36415-TC; J7613